=== PATIENT | female | born 1985 | race Two or more races ===

== ENCOUNTER 2018-10-31 07:03 | Day surgery (SDC) | payer BC ==
[2018-10-31] VITALS (26 sets, daily range): BP systolic 101–140; BP diastolic 56–77; PULSE 72–96; RESP 11–24; Ht 167.6 cm; Wt 52.9 kg
[~2018-10-31] VITALS: Ht 167.6 cm; Wt 52.9 kg
[2018-10-31] MEDS ORDERED: CEFAZOLIN 2 GM/50 ML (PMX) 50 ML IVPB SCH (09:00)
[2018-10-31] MEDS ORDERED: SOD CHLORIDE 0.9% 1,000 ML IV SCH (09:00)
[2018-10-31] MEDS ORDERED: BUPIVACAINE 0.25% (MPF) 30 ML INJ ONE (11:08)
--- NOTE | 2018-10-31 11:19 | PREAC ---
Date/Time of Note Date/Time of Note DATE: 10/31/18 TIME: 11:17 Anesthesia Eval and Record Evaluation Time Pre-Procedure Interview DATE: 10/31/18 TIME: 11:17 Age 33 Sex female NPO: 8 hrs Preoperative diagnosis umblical hernia Planned procedure lap umblical hernia repair Past Medical History Past Medical History: None Surgery & Anesthesia Issues No known issue Meds Anticoagulation: No Beta Kika within 24 hr: No Reason Beta Kika not given: Pt. not on B-Kika No Active Prescriptions or Reported Meds Current Medications Sodium Chloride 1,000 ml @ 75 mls/hr [id number] IV ; Start 10/31/18 at 09:00; Stop 10/31/18 at 21:00 Meds reviewed: Yes Allergies Coded Allergies: No Known Allergy (Unverified , 10/31/18) Allergies Reviewed: Yes Labs/Studies Labs Reviewed: Reviewed by anesthesiologist test: Negative Pre-procedure Exam Last vitals Vital Signs Date Temp Pulse Resp B/P (MAP) Pulse Ox O2 O2 Flow FiO2 Time Delivery Rate 10/31/18 97.5 79 16 101/63 99 Room Air 07:46 (76) Airway: Adequate mouth opening Mallampati: Mallampati I Teeth: Normal Lung: Normal Heart: Normal Anticipated Difficutly with IV: Anticipate Difficult IV Access ASA Physical Status ASA physical status: 1 Emergency: None Planned Anesthetic General/MAC: ETT Pre-operative Attestations Prior to commencing anesthesia and surgery, the patient was re-evaluated, there was verification of: *The patient's identity *The results of appropriate recent lab work and preoperative vital signs *The above evaluation not changing prior to induction *Anesthetic plan, risk benefits, alternative and complications discussed with patient/family; questions answered; patient/family understands, accepts and wishes to proceed. JULIOCESAR MCCLENDON MD Oct 31, 2018 11:19
[2018-10-31] MEDS ORDERED: HYDROmorphONE 2 MG/ML SYG ONE (11:38)
[2018-10-31] MEDS ORDERED: ROCURONIUM 50 MG INJ ONE (11:38)
[2018-10-31] MEDS ORDERED: PROPOFOL 20 ML ONE (11:38)
[2018-10-31] MEDS ORDERED: ONDANSETRON 4 MG INJ ONE (11:39)
[2018-10-31] MEDS ORDERED: DIPHENHYDRAMINE 50 MG INJ ONE ×2 (11:45→14:03)
[2018-10-31] MEDS ORDERED: SUGAMMADEX SODIUM 200 MG/2 ML VIAL IV ONE (12:27)
[2018-10-31] MEDS ORDERED: HYDROCODONE/APAP (5/325) TAB PO ONE (12:30)
[2018-10-31] MEDS ORDERED: HYDROmorphONE 1 MG/5 ML IV SYRINGE IV PRN ×2 (12:30)
[2018-10-31] MEDS ORDERED: hydrALAzine 20 MG INJ IV PRN (12:30)
[2018-10-31] MEDS ORDERED: METOCLOPRAMIDE 10 MG INJ IV PRN (12:30)
[2018-10-31] MEDS ORDERED: ONDANSETRON 4 MG INJ IV PRN (12:30)
[2018-10-31] MEDS ORDERED: LABETALOL HCL 20MG INJ IV PRN (12:30)
[2018-10-31] MEDS ORDERED: MEPERIDINE 25 MG INJ IV PRN ×2 (12:30→14:30)
--- NOTE | 2018-10-31 12:32 | OPR ---
Date/Time of Note Date/Time of Note DATE: 10/31/18 TIME: 12:29 Operative Report Procedure Date: Oct 31, 2018 Preoperative Diagnosis incarcerated ventral hernia Postoperative Diagnosis same Operation/Procedure Performed 1. laparoscopic incarcerated ventral hernia repair 2. implantation of 10 x [address] mesh 3. therapeutic injection of subcutaneous local anesthesia 4. laparoscopic lysis of adhesions Surgeon see signature line Science Manager chio Oliveira Anesthesia Type: general Estimated Blood Loss: 0 - 10 ml's Transfusion none Specimen none Grafts/Implants none Complications none Pt Condition Post Procedure: stable Indications This is a 33-year-old female with an incarcerated ventral hernia. She requires surgical repair. Risks alternatives benefits and percent were discussed the patient. Patient expressed understanding and consents to the operation. Procedure Description Patient is taken to the OR and prepped and draped in usual sterile fashion. Surgical time is performed. IV antibiotics given. Left upper quadrant 5 mm transverse incision is made with a 15 blade. Using a 5 mm optical trocar optical entry is performed. Pneumoperitoneum is status. Left flank 12 mm optical trochars placed under direct physician. Left lower quadrant 5 mm optical trochars placed under direct visualization. Upon initial inspection there is incarcerated contents to the ventral incarcerated hernia. Lap scopic lysis of adhesions performed in this allowed manipulation and reduction of the incarcerated contents. Fascial edges were identified. The defect of the hernia was closed primarily using Endo Close and laparoscopic techniques in interrupted fashion with #1 Vicryl. After primary closure of the defect underlay mesh with ventral ST 10 x 15 cm mesh was secured with secure strap with approximate 45 cm of coverage in all directions. Good hemostasis status. All ports removed under direct physician. Skin was closed using interrupted and running 4-0 Monocryl. Therapy secondary to local anesthesia was injected at the incision site. Dry dressings were applied. Theodore PICHARDO Oct 31, 2018 12:32
[2018-10-31] MEDS ORDERED: MIDAZOLAM 1 MG/ML 2 ML INJ ONE (12:35)
[2018-10-31] MEDS ORDERED: FENTAnyl 50 MCG/ML VIAL ONE (12:35)
[2018-10-31] MEDS ORDERED: KETOROLAC 30 MG INJ IV STA (13:34)
[2018-10-31] MEDS ORDERED: KETOROLAC 30 MG INJ ONE (13:37)
--- NOTE | 2018-10-31 13:38 | PAC ---
Date/Time of Note Date/Time of Note DATE: 10/31/18 TIME: 13:38 Post-Anesthesia Notes Post-Anesthesia Note Last documented vital signs Vital Signs Date Temp Pulse Resp B/P (MAP) Pulse Ox O2 O2 Flow FiO2 Time Delivery Rate 10/31/18 98.0 13:29 10/31/18 88 22 120/67 98 Room Air 13:15 (84) Activity: WNL Respiratory function: WNL Cardiovascular function: WNL Mental status: Baseline Pain reasonably controlled: Yes Hydration appropriate: Yes Nausea/Vomiting absent: No JULIOCESAR MCCLENDON MD Oct 31, 2018 13:38
[2018-10-31] MEDS ORDERED: ACETAMINOPHEN 1000MG/100ML IV 100 ML IVPB ONE (14:00)
[2018-10-31] MEDS ORDERED: MIDAZOLAM 1 MG/ML 2 ML INJ IV PRN (14:30)
[2018-10-31] MEDS ORDERED: DIPHENHYDRAMINE 50 MG INJ IV PRN (14:30)
== END 2018-10-31 16:00 | disposition home or self-care (01) ==
LOC: SDS 07:03
PROVIDERS: ATTEND Surgery
DX: K43.9 Ventral hernia without obstruction or gangrene (principal)
CPT/HCPCS: 49653; 80053; 85025; 85610; 85730; J0131; J1170; J1200; J1885; J2175; J2250; J2405; Z7610; J3010